=== PATIENT | male | born 1995 | race Caucasian/White ===

== ENCOUNTER 2018-05-12 18:11 | Emergency (ER) | payer BC ==
[~2018-05-12] VITALS: Ht 180.3 cm; Wt 108.9 kg
[2018-05-12 18:21] VITALS: BP_SYST 125
--- NOTE | 2018-05-12 18:27 | NUR ---
Patient triaged and placed in waiting room. VSS and patient appears in no acute distress at this time. Accompanied by brother, awaiting available bed, and MD notified of need for MSE.
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
--- NOTE | 2018-05-12 19:11 | NUR ---
Patient to ER bed 05 to gown for evaluation. Side rails up. Report given to Jose.
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
--- NOTE | 2018-05-12 19:53 | NUR ---
ER Dr. Harrison at bedside examining patient.
[2018-05-12 20:43] VITALS: BP_SYST 125
--- NOTE | 2018-05-12 20:43 | NUR ---
Patient given written and verbal discharge instructions and verbalizes understanding. ER MD discussed with patient the results and treatment provided. Patient in stable condition. ID arm band removed. Rx of Motrin given. Patient educated on pain management and to follow up with PMD in 2-3 days. Pain Scale 0/10 Opportunity for questions provided and answered. Medication side effect fact sheet provided.
== END 2018-05-12 20:43 | disposition home or self-care (01) ==
LOC: SED 18:11
DX: S09.90XA Unspecified injury of head, initial encounter (principal); R03.0 Elevated blood-pressure reading, without diagnosis of hypertension; Y04.0XXA Assault by unarmed brawl or fight, initial encounter; Y93.89 Activity, other specified; Y92.89 Other specified places as the place of occurrence of the external cause; Y99.8 Other external cause status
CPT/HCPCS: 99283

== ENCOUNTER 2019-03-29 14:19 | Emergency (ER) | payer BC ==
[~2019-03-29] VITALS: Ht 180.3 cm; Wt 104.3 kg
[2019-03-29 14:31] VITALS: BP_SYST 152
--- NOTE | 2019-03-29 14:35 | NUR ---
Patient triaged and placed in waiting room. VSS and patient appears in no acute distress at this time. Accompanied by self, awaiting available bed, and MD notified of need for MSE.
--- NOTE | 2019-03-29 16:27 | NUR ---
Patient to [facility] chair for evaluation. Side rails up.
--- NOTE | 2019-03-29 16:35 | NUR ---
Patient complaining of lower back pain intermittently states " it might be my sciatica nerve." Pain 9/10. Reports not taking any medication. Patient reports that it has been happening x 1 month. No other complaints/injuries per patient or as noted. Will continue to monitor.
--- NOTE | 2019-03-29 16:37 | NUR ---
SIDRA Chavez examining patient.
[2019-03-29] MEDS ORDERED: IBUPROFEN 800 MG TABLET PO ONE (16:45)
[2019-03-29 16:47] VITALS: BP_SYST 152
--- NOTE | 2019-03-29 16:47 | NUR ---
Patient given written and verbal discharge instructions and verbalizes understanding. ER MD discussed with patient the results and treatment provided. Patient in stable condition. ID arm band removed. Rx of motrin and flexeril given. Patient educated on pain management and to follow up with PMD. Pain Scale 0/10 Opportunity for questions provided and answered.
== END 2019-03-29 16:47 | disposition home or self-care (01) ==
LOC: SED 14:19
DX: M54.16 Radiculopathy, lumbar region (principal); R03.0 Elevated blood-pressure reading, without diagnosis of hypertension
CPT/HCPCS: 99283

== ENCOUNTER 2019-06-30 14:15 | Emergency (ER) | payer BC ==
[~2019-06-30] VITALS: Ht 180.3 cm; Wt 106.6 kg
[2019-06-30 15:07] VITALS: BP_SYST 138
--- NOTE | 2019-06-30 15:14 | NUR ---
Patient triaged and placed in waiting room. VSS and patient appears in no acute distress at this time. Awaiting available bed, and MD notified of need for MSE.
--- NOTE | 2019-06-30 15:30 | NUR ---
Patient to ER bed H1 to gown for evaluation. Side rails up.
--- NOTE | 2019-06-30 15:40 | NUR ---
ER at bedside examining patient.
[2019-06-30] MEDS ORDERED: KETOROLAC TROMETHAMINE 60 MG/2 ML VIAL IM ONE (16:00)
--- NOTE | 2019-06-30 16:00 | NUR ---
PT C/O BACK PAIN S/P LIFTING HEAVY OBJECT AT WORK
--- NOTE | 2019-06-30 16:20 | NUR ---
PT TOLERATED MEDICATION WELL.
[2019-06-30 16:43] VITALS: BP_SYST 138
--- NOTE | 2019-06-30 16:43 | NUR ---
Patient given written and verbal discharge instructions and verbalizes understanding. ER MD discussed with patient the results and treatment provided. Patient in stable condition. ID arm band removed. IV catheter removed intact and dressing applied, no active bleeding. Rx of NAPROSYN given. Patient educated on pain management and to follow up with PMD. Pain Scale 2 Opportunity for questions provided and answered. Medication side effect fact sheet provided.
== END 2019-06-30 16:43 | disposition home or self-care (01) ==
LOC: SED 14:15
DX: M54.30 Sciatica, unspecified side (principal)
CPT/HCPCS: 99282; J1885

== ENCOUNTER 2021-06-04 02:45 | Emergency (ER) | payer BC, SELFPAY ==
[~2021-06-04] VITALS: Ht 180.3 cm; Wt 120.2 kg
[2021-06-04 02:55] VITALS: BP_SYST 156
--- NOTE | 2021-06-04 03:00 | NUR ---
Placed in room 01 . Placed on youth nutritional monitor, blood pressure machine and pulse oximeter. To gown for exam. Side rails up. Report given to
--- NOTE | 2021-06-04 03:15 | NUR ---
ER at bedside examining patient.
[2021-06-04 04:25] VITALS: BP_SYST 156
--- NOTE | 2021-06-04 04:28 | NUR ---
Patient given written and verbal discharge instructions and verbalizes understanding. ER MD discussed with patient the results and treatment provided. Patient in stable condition. ID arm band removed. Patient educated on pain management and to follow up with PMD. Pain Scale 0/10. Opportunity for questions provided and answered. Medication side effect fact sheet provided.
== END 2021-06-04 04:25 | disposition home or self-care (01) ==
LOC: SED 02:45
DX: R07.2 Precordial pain (principal); Z79.899 Other long term (current) drug therapy
CPT/HCPCS: 93005; 99283